=== PATIENT | male | born 1955 | race Caucasian/White ===

== ENCOUNTER 2018-05-12 15:52 | Emergency (ER) | payer BC ==
[~2018-05-12 15:52] MED LIST: AMIODARONE 150 MG INJ; EPINEPHrine 0.1 MG/ML SYG; NA BICARBONATE 8.4% 50 ML SYG
== END 2018-05-12 21:32 | disposition expired ==
LOC: E/R 15:52
DX: I46.9 Cardiac arrest, cause unspecified (principal)
CPT/HCPCS: 82962; 92950; 99283